=== PATIENT | female | born 1985 | race Hispanic/Latino ===

== ENCOUNTER 2017-06-28 18:12 | Emergency (ER) | payer BC ==
[2017-06-28 18:13] VITALS: BMI 32.5
[2017-06-28] MEDS ORDERED: guaiFENesin DM 200 mg-20 mg/10 ml UD PO ONE (18:35)
[2017-06-28 18:44] VITALS: RESP 18
--- NOTE | 2017-06-28 18:46 | ED PDOC ---
Arrival/HPI - General Chief Complaint: Flu-like Symptoms Time Seen by Provider: 06/28/17 18:33 Historian: Patient - History of Present Illness Narrative History of Present Illness (Text): 06/28/17 18:40 pt p/w + 3 days onset of intermittent productive cough (slight bloody/mostly clear sputum); + diffuse body pain/aches, + runny nose, + worsening congestion; + fever x 1 day, + sweating last night, ? chills; + chest aches, + sob, no palpitations, no abd pain, + nausea, no vomiting, no appetite, no urinary/bowel changes, no fall/trauma/travel, ? sick contact; pt was seen at a local urgent care center earlier today and dx with the flu and was prescribed medication for coughing; pt states she is not feeling better and came to ED for further eval; pt denied other complaints pt felt + weakness, no loc. pt states when she was a teenager, had a wheezing episode, but no dx of asthma Time/Duration: < week Symptom Onset: Gradual Symptom Course: Worsening Quality: Aching, Throbbing Severity Level: Severe Activities at Onset: Rest Context: Home Past Medical History - Provider Review Nursing Documentation Reviewed: Yes - Travel History Have you recently traveled outside [place] w/in the past 3 mons?: No - Past History Past History: No Previous - Infectious Disease Hx of Infectious Diseases: None - Tetanus Immunization Tetanus Immunization: Unknown - Reproductive Menopause: No - Past Medical History Past Medical History: No Previous - Cardiac Hx Cardiac Disorders: No - Pulmonary Hx Respiratory Disorders: No - Neurological Hx Neurological Disorder: No - HEENT Hx HEENT Disorder: No - Renal Hx Renal Disorder: No - Endocrine/Metabolic Hx Endocrine Disorders: No - Hematological/Oncological Hx Blood Disorders: No - Integumentary Hx Dermatological Disorder: No - Musculoskeletal/Rheumatological Hx Musculoskeletal Disorders: No Hx Falls: No - Gastrointestinal Hx Gastrointestinal Disorders: No - Genitourinary/Gynecological Hx Genitourinary Disorders: No - Psychiatric Hx Psychophysiologic Disorder: No Hx Substance Use: No - Past Surgical History Past Surgical History: No Previous - Surgical History Other/Comment: - Suicidal Assessment Feels Threatened In Home Enviroment: No Family/Social History - Physician Review Nursing Documentation Reviewed: Yes Family/Social History: No Known Family HX Smoking Status: Never Smoked Hx Alcohol Use: Yes Hx Substance Use: No Hx Substance Use Treatment: No Allergies/Home Meds Allergies/Adverse Reactions: Allergies No Known Allergies Allergy (Verified 02/02/15 22:58) Review of Systems - Review of Systems Constitutional: Fatigue, Fevers, Night Sweats Eyes: Normal ENT: Rhinorrhea, Sinus Congestion Respiratory: SOB, Cough, Sputum Cardiovascular: Chest Pain Gastrointestinal: Nausea. absent: Abdominal Pain Genitourinary Female: Normal Musculoskeletal: Back Pain, Other (body pain) Skin: Normal. absent: Rash Neurological: Normal Endocrine: Normal Hemo/Lymphatic: Normal Psychiatric: Normal Physical Exam Vital Signs Reviewed: Yes Vital Signs Temp Pulse Resp BP Pulse Ox 06/28/17 18:24 100.4 F H 99 H 20 137/95 H 99 Temperature: Febrile Blood Pressure: Hypertensive Pulse: Regular Respiratory Rate: Normal Appearance: Positive for: Well-Appearing, Other (uncomfortable, alert/awake, GCS = 15, oriented x 3, cooperative, follows command with ease) Pain Distress: None Mental Status: Positive for: Alert and Oriented X 3 - Systems Exam Head: Present: Atraumatic, Normocephalic Pupils: Present: PERRL, Other (no photophobia, sclera anicteric, no nystagmus) Extroacular Muscles: Present: EOMI Conjunctiva: Present: Normal Ears: Present: Normal Mouth: Present: Normal Teeth, Other (no drooling/stridor, no exudate/lesions) Pharnyx: Present: Normal Nose (External): Present: Atraumatic Nose (Internal): Present: Normal Inspection Neck: Present: Normal Range of Motion, Trachea Midline. No: MIDLINE TENDERNESS Respiratory/Chest: Present: Clear to Auscultation, Good Air Exchange, Other ( CTA b/l, no w/r/r, no accessory muscle use noted, no tachypenia) Cardiovascular: Present: Regular Rate and Rhythm, Normal S1, S2. No: Murmurs Abdomen: Present: Normal Bowel Sounds, Other (well nourished female/mild obese; no focal tenderness, no eric's sign, no mcburney's point tenderness, no masses /rebound/guarding/rigidity) Back: Present: Normal Inspection. No: CVA Tenderness, Midline Tenderness Upper Extremity: Present: Normal Inspection, Normal ROM, NORMAL PULSES, Neurovascularly Intact, Capillary Refill < 2s Lower Extremity: Present: Normal Inspection, NORMAL PULSES, Normal ROM, Neurovascularly Intact, Capillary Refill < 2 s Neurological: Present: GCS=15, CN II-XII Intact, Speech Normal Skin: Present: Warm, Normal Color, Other (cap refill < 1sec, no ulcerations, no petechiae, no rashes) Psychiatric: Present: Alert, Oriented x 3 Medical Decision Making ED Course and Treatment: 06/28/17 18:35 Impression: sob/viral syndrome i have consider all the differential diagnosis regarding pt's chief medical complaints/clinical findings, including but are not limited to: sob, viral syndrome, r/o PNA, likely the flu A/P: sob/viral syndrome - treatment - observe - supportive care 06/28/17 19:43 pt felt improved lung re-exam: CTA b/l, no w/r/r, no wheezing, no accessory muscle use; no tachypenia pt states her symptoms are much better than when she first arrived pt is made aware of her medical results pt is encouraged fluids pt is encouraged 1tsp of honey every 8 hours for cough control pt will f/u as directed pt will be discharged home Re-evaluation Time: 19:54 Reassessment Condition: Improved - RAD Interpretation Radiology Orders: 06/28/17 18:33 CHEST TWO VIEWS (PA/LAT) [RAD] Stat NAD Professor Of Biology: ED Physician - Medication Orders Current Medication Orders: Oseltamivir Phosphate (Tamiflu Cap) 75 mg PO ONCE ONE PRN Reason: Protocol Stop: 06/29/17 18:35 Discontinued Medications Guaifenesin/Dextromethorphan (Robitussin Dm) 10 ml PO ONCE ONE Stop: 06/28/17 18:36 Ibuprofen (Motrin Tab) 600 mg PO STAT STA Stop: 06/28/17 18:35 Disposition/Present on Arrival - Present on Arrival Any Indicators Present on Arrival: No History of DVT/PE: No History of Uncontrolled Diabetes: No Urinary Catheter: No History of Decub. Ulcer: No History Surgical Site Infection Following: None - Disposition Have Diagnosis and Disposition been Completed?: Yes Diagnosis: Viral syndrome, Cough Disposition: HOME/ ROUTINE Disposition Time: 19:55 Patient Plan: Discharge Condition: STABLE Discharge Instructions (ExitCare): Cough in Adults, Viral Upper Respiratory Infection, Adult (DC) Print Language: [place] Additional Instructions: Make sure to see your doctor in 1-2 days DRINK PLENTY OF FLUIDS take your medications as prescribed RETURN TO ED IF worse pain, cant breath, persistent vomiting, high fever >101- 102 for hours, altered behavior, unable to urinate, heavy/persistent bleeding, passing out, chest pain, or other medical emergencies Prescriptions: Albuterol HFA [Ventolin HFA 90 mcg/actuation (8 g)] 1 puff IH QID PRN #1 inhaler PRN Reason: Wheezing Ibuprofen [Motrin] 600 mg PO QID PRN #30 tab PRN Reason: Fever >100.4 F Oseltamivir [Tamiflu] 75 mg PO BID #9 cap [facility] - Follow up with primary Forms: [facility] ([place]), WORK NOTE
[2017-06-28] MEDS: Albuterol-Ipratrop 3 mg / 0.5 (3 ml) UD IH SCH ×3 (18:48→19:20)
[2017-06-28 19:57] VITALS: BP 118/65; PULSE 81; TEMP 98.4; O2SAT 100
--- NOTE | 2017-06-29 08:09 | RAD ---
HISTORY: sob, cough COMPARISON: No prior. TECHNIQUE: Chest PA and lateral FINDINGS: LUNGS: No active pulmonary disease. PLEURA: No significant pleural effusion identified. No pneumothorax apparent. CARDIOVASCULAR: Normal. OSSEOUS STRUCTURES: No significant abnormalities. VISUALIZED UPPER ABDOMEN: Normal. OTHER FINDINGS: None. IMPRESSION: No acute cardiopulmonary disease appreciated.
--- NOTE | 2017-06-30 02:49 | CARD ---
APPROVED REPORT EKG Measurement Heart [id number] <Conclusion> Normal sinus rhythm with sinus arrhythmia Normal ECG
== END 2017-06-28 20:18 | disposition home or self-care (01) ==
LOC: ED 18:12
DX: B34.9 Viral infection, unspecified (principal); R05 Cough